=== PATIENT | male | born 1950 | race Caucasian/White ===

== ENCOUNTER → 2016-10-29 | Outpatient (CLI) | payer OTHER | LOC: CIMAGING 14:13 | PROVIDERS: ATTEND Family Medicine Sports Medicine | DX: R07.89 Other chest pain (principal); R91.1 Solitary pulmonary nodule | CPT/HCPCS: 71250-PO ==

== ENCOUNTER → 2016-11-09 | Outpatient (CLI) | payer OTHER ==
[~2016-11-09] MED LIST: IOPAMIDOL (ISOVUE-300) 100 ML BTL IV ONE
== END ==
LOC: FIMAGING 11:35
PROVIDERS: ATTEND Family Medicine Sports Medicine
DX: R59.0 Localized enlarged lymph nodes (principal); N13.2 Hydronephrosis with renal and ureteral calculous obstruction; K59.00 Constipation, unspecified; M53.3 Sacrococcygeal disorders, not elsewhere classified; E04.1 Nontoxic single thyroid nodule; R91.1 Solitary pulmonary nodule; I25.10 Atherosclerotic heart disease of native coronary artery without angina pectoris
CPT/HCPCS: 71260; 74177; Q9967

== ENCOUNTER 2017-01-04 06:19 | Observation (INO) | payer OTHER ==
[2017-01-04] MEDS ORDERED: THROMBIN (BOVINE) 5,000 UNIT VIAL TP ONE ×3 (06:23→10:31)
[2017-01-04] MEDS ORDERED: BUPIVACAINE 0.5% 30 ML SDV ONE (06:23)
[2017-01-04] MEDS ORDERED: BUPIVACAINE/EPI 0.25% 30 ML SDV ONE (06:23)
[2017-01-04] MEDS ORDERED: LIDOCAINE 1% 2 ML INJ ONE (07:40)
[2017-01-04] MEDS ORDERED: PROPOFOL 200 MG/20 ML VIAL ONE ×2 (07:45→07:49)
[2017-01-04] MEDS ORDERED: fentaNYL 100 MCG/2 ML INJ ONE (07:45)
[2017-01-04] MEDS ORDERED: ROCURONIUM 50 MG/5 ML VIAL ONE (07:50)
[2017-01-04] MEDS ORDERED: LIDOCAINE 2% 100 MG/5 ML SYR ONE (07:50)
[2017-01-04] MEDS ORDERED: LIDOCAINE 1% 5 ML SDV ID PRN (07:54)
[2017-01-04] MEDS ORDERED: ceFAZolin 2 GM/DEXTROSE 100 ML IV ONE (08:00)
[2017-01-04 08:09] LABS: % IMMATURE GRANULYOCYTES 0.3 % (0.0-1.1); ABSOLUTE IMMATURE GRANULOCYTES 0.02 10^3/uL (0.00-0.10); ADD DIFF? NO; ADD MORPH? NO; ADD SCAN? NO; ATYPICAL LYMPHOCYTE FLAG 10 (0-99); FRAGMENT RBC FLAG 0 (0-99); HEMATOCRIT 47.5 % (40.0-51.0); HEMOGLOBIN 16.2 g/dL (13.7-17.5); LEFT SHIFT FLG 0 (0-99); LIPEMIA HEMOLYSIS FLAG 90 (0-99); MEAN CELL HEMOGLOBIN CONCENTR. 34.1 g/dL (32.4-36.7); MEAN CELL VOLUME 90.8 fL (81.5-99.8); MEAN PLATELET VOLUME 10.4 fL (8.7-11.7); PLATELET CLUMPS FLAG 0 (0-99); PLATELET COUNT 191 10^3/uL (150-400); RED BLOOD CELL COUNT 5.23 10^6/uL (4.40-6.38); RED CELL DISTRIBUTION WIDTH 11.9 % (11.5-15.2)
[2017-01-04] MEDS ORDERED: BUPIVACAINE/EPI 0.5% 30 ML SDV ONE (08:09)
[2017-01-04] MEDS ORDERED: DEXAMETHASONE 4 MG/ML VIAL ONE ×2 (08:48)
[2017-01-04] MEDS ORDERED: ONDANSETRON 4 MG/2 ML VIAL ONE ×3 (08:49→11:58)
[2017-01-04] MEDS ORDERED: HYDROmorphONE/DILAUDID 2 MG/ML INJ ONE (08:51)
[2017-01-04] MEDS ORDERED: KETOROLAC 30 MG/1 ML SDV ONE (10:12)
[2017-01-04] MEDS ORDERED: SUGAMMADEX SODIUM 200 MG/2 ML VIAL IVP ONE (10:12)
--- NOTE | 2017-01-04 10:57 | POSTOPPROG ---
Post Op Note Date of Operation: 01/04/17 Surgeon: Emmett Waddell Licensed Physical Therapist Assistant: corinne Anesthesiologist: sheeba Anesthesia: GET(General Endotracheal) Pre-op Diagnosis: thyroid nodules, mediastinal adenopathy Post-op Diagnosis: bilateral thyroidpapillary cancer/ sarcoidosis Procedure: mediastinoscopy and lymph node bx/total thyroidectomy and central node bx Findings: bilateral papillary cancer, negative central nodes/ sarcoidosis Inf/Abcess present in the surg proc area at time of surgery?: No Depth: Organ Space EBL: Minimal Complications: 0 Specimen(s): both thyroid lobes, central nodes, mediastinal nodes
[2017-01-04] MEDS ORDERED: HYDROmorphONE/DILAUDID 1 MG/ML SYR IVP PRN (11:02)
[2017-01-04] MEDS ORDERED: ONDANSETRON 4 MG/2 ML VIAL IVP PRN (11:02)
[2017-01-04] MEDS ORDERED: HYDROCODONE/APAP 5/325 TAB PO PRN (11:02)
[2017-01-04] MEDS ORDERED: PROMETHAZINE HCL 25 MG/ML INJ ONE (11:48)
--- NOTE | 2017-01-04 13:37 | POSTOPPROG ---
Post Op Note Date of Operation: 01/04/17 Surgeon: Emmett Waddell Core Extruder: Elvira Turpin Anesthesiologist: Yasmani Ruvalcaba Anesthesia: GET(General Endotracheal) Pre-op Diagnosis: R papillary thyroid CA, mediastinal and hilar LAD Post-op Diagnosis: bilateral papillary thyroid CA, possible sarcoidosis Procedure: mediastinoscopy, total thyroidectomy, LN biopsies Findings: R&L nodules +papillary CA; nodes benign, possible sarcoid Inf/Abcess present in the surg proc area at time of surgery?: No EBL: Minimal Complications: none Specimen(s): paratracheal mediastinal LN, central compartment LNs, R thyroid, L thyroid nodule, and L thyroid to pathology
[2017-01-04] MEDS ORDERED: SIMVASTATIN 40MG TAB PO SCH (21:00)
[2017-01-04] MEDS: DOCUSATE SODIUM 100 MG CAP PO SCH (21:00)
--- NOTE | 2017-01-04 21:38 | SOAPPROG ---
SOAP Progress Note Assessment/Plan: Assessment/Plan: 66 Y M s/p mediastinoscopy, total thyroidectomy. POD#0. Papillary thyroid CA, possible sarcoidosis. Post op check. CXR ok. AFVSS. Ca+ WNL. Chovstek's sign neg. Pain controlled. Wounds intact. Continue routine post op care. Dispo: likely in am. 01/04/17 21:35 Objective: Vital Signs Temp Pulse Resp BP Pulse Ox 36.7 C 71 14 129/63 H 94 01/04/17 19:59 01/04/17 19:59 01/04/17 19:59 01/04/17 19:59 01/04/17 19:59 Microbiology 01/04/17 09:06 Mycobacterial Smear (BEENA) - Final Neck - Tissue Laboratory Results 01/04/17 07:58 01/03/17 01/04/17 01/05/17 05:59 05:59 05:59 Intake Total 1650 Output Total 415 Balance 1235 ICD10 Worksheet Patient Problems: Problems Problem Status Onset Papillary thyroid carcinoma Acute - ICD10 Problem Qualifiers (1) Papillary thyroid carcinoma
[2017-01-05 06:55] LABS: ANION GAP 8 mEq/L (8-16); CALCIUM 8.8 mg/dL (8.5-10.4); CARBON DIOXIDE 24 mEq/l (22-31); CHLORIDE 107 mEq/L (97-110); CREATININE 1.3 mg/dL (0.7-1.3); GLOMERULAR FILTRATION RATE 55; GLUCOSE 97 mg/dL (70-100); POTASSIUM 4.8 mEq/L (3.5-5.2); SODIUM 139 mEq/L (134-144)
[2017-01-05 07:52] VITALS: BP 136/74; PULSE 66; RESP 16; TEMP 97.8; O2SAT 95
[2017-01-05] MEDS: DOCUSATE SODIUM 100 MG CAP PO SCH (08:28)
[2017-01-05] MEDS ORDERED: ATORVASTATIN CALCIUM 20 MG TAB PO SCH (09:00)
--- NOTE | 2017-01-05 12:36 | GOP ---
[f rep st] OPERATIVE REPORT DATE OF OPERATION: 01/04/2017 SURGEON: Emmett Waddell MD SUPERVISOR PARKING LOT: ROSA ISELA Garcia ANESTHESIOLOGIST: Dr. Ruvalcaba. PREOPERATIVE DIAGNOSIS: 1. Suspicious thyroid nodules, possible papillary cancer. 2. Mediastinal adenopathy. POSTOPERATIVE DIAGNOSIS: 1. Bilateral papillary cancer of the thyroid. 2. Sarcoidosis. PROCEDURE PERFORMED: 1. Mediastinoscopy and lymph node biopsy. 2. Right thyroid lobectomy and wedge biopsy of the left lobe. 3. Left thyroid lobectomy. 4. Central compartment node biopsies. FINDINGS: Patient was found to have large peritracheal and hilar mediastinal lymph nodes which were consistent with sarcoidosis. Was found to have an over 1 cm mass on the right lobe of the thyroid which was positive for papillary cancer. In addition, he had a nearly 2 cm lesion on the left lobe of the thyroid which was also consistent with papillary cancer although it had a cystic component. He had noninvolved appearing central compartment lymph nodes. ESTIMATED BLOOD LOSS: Less than 20 cc. DESCRIPTION OF PROCEDURE: Patient taken to the operating room, where he received satisfactory general endotracheal anesthesia by Dr. Ruvalcaba. He was placed in the supine position with his arms tucked and his neck slightly extended, where he received satisfactory general endotracheal anesthesia. He was prepped and draped in usual sterile fashion. A low collar incision was made , carried through the platysma. Platysmal flaps were developed to the thyroid cartilage and to the sternal notch. Strap muscles were in the midline. A pretracheal space was developed and dissected down into the mediastinum where some palpable lymph nodes were identified. The mediastinoscope was introduced along the right side of the trachea. A large 1.5 cm lymph node was carefully dissected free intact and removed, and sent to Pathology. Hemostasis was assured with electrocautery. The wound was then irrigated. Attention was turned to the thyroid while we were waiting for pathology reports. The right lobe of the thyroid was then mobilized by dividing the middle thyroid vein with the Harmonic Scalpel. The dissection extended down along the thyroid capsule. The parathyroid glands were identified and dissected away from the thyroid capsule. The recurrent laryngeal nerve was identified and traced throughout its course. After the anatomy was well identified, the superior pole vessels were divided with the Harmonic Scalpel, and the entire right lobe was then retracted medially and dissected off the trachea with the Harmonic Scalpel and/or electrocautery. Inferior pole vessels were divided with the Harmonic Scalpel as well, and the gland was then divided at the isthmus with the Harmonic Scalpel and sent out to Pathology for frozen section. In the interim, a search was done for lymph nodes in the central compartment and several of these were dissected free and sent to pathology separately. Hemostasis was obtained by hemoclips and with the Harmonic Scalpel. These all appeared to be benign, and frozen section was returned as benign. In addition, there was a nodule in the left lower lobe of the thyroid. This was identified. It appeared to be partly cystic but even after draining the cyst there was still a nodule there. That nodule was dissected free and removed and sent for frozen section. The outer thyroid tissue was approximated with 3-0 Vicryl. Frozen section for both thyroid nodules came back as papillary cancer, so we then reopened the wound which had been closed and took out the left lobe of the thyroid in a similar manner. Recurrent nerve was identified and spared from injury. Parathyroid glands were dissected away from the thyroid gland. The upper pole vessels were divided with the Harmonic Scalpel and the left lobe was rotated medially away from the nerve and taken off the trachea with electrocautery, and sent to Pathology. Hemostasis was assured. Wounds were irrigated. Some topical thrombin was placed in the biopsy cavity. Strap muscle was then approximated with a running 3-0 Vicryl suture. Wounds were infiltrated with 0.5% Marcaine and then the platysma was closed with a running 3-0 Vicryl suture. The skin with a 4-0 Monocryl subcuticular stitch. He tolerated procedure well, and was taken to recovery room in good condition. There were no complications. Copy requested to: Dr. Jhaveri /[id number]/MODL MTDD
[2017-01-06] MEDS ORDERED: ENOXAPARIN 40 MG/0.4 ML SYR SC SCH (09:00)
== END 2017-01-05 10:13 | disposition home or self-care (01) ==
LOC: F3E 06:19
PROVIDERS: ADMIT Surgery; ATTEND Surgery
PROC: 0GTG0ZZ Resection of Left Thyroid Gland Lobe, Open Approach (ICD-10-PCS; principal; 2017-01-04 08:00)
PROC: 0GTH0ZZ Resection of Right Thyroid Gland Lobe, Open Approach (ICD-10-PCS; principal; 2017-01-04 08:00)
PROC: 07B74ZX Excision of Thorax Lymphatic, Percutaneous Endoscopic Approach, Diagnostic (ICD-10-PCS; principal; 2017-01-04 08:00)
DX: C73 Malignant neoplasm of thyroid gland (principal); R59.1 Generalized enlarged lymph nodes
CPT/HCPCS: 39402; 60225; 71010; 88312; J0690; J1100; J1170; J1885; J2001; J2405; J2550; J2704; J3010